=== PATIENT | male | born 1945 | race Caucasian/White ===

== ENCOUNTER 2020-05-29 07:04 | Outpatient (CLI) | payer MEDICARE, SELFPAY ==
[2020-05-29 07:46] LABS: Alanine Aminotransferase 26 U/L (4-50); Albumin Level 4.1 g/dL (3.5-5.1); Alkaline Phosphatase 63 U/L (38-126); Aspartate Amino Transferase 40 U/L (17-59); Bilirubin,Total 1.9 mg/dL (0.2-1.3); Blood Urea Nitrogen 15 mg/dL (9-20); Calcium 9.2 mg/dL (8.4-10.2); Carbon Dioxide 30 mmol/L (22-30); Chloride 102 mmol/L (98-107); Cholesterol 226 mg/dL (0-200); Estimated Glomerular Filt Rate 59; Glucose 95 mg/dL (75-110); HDL Direct 53 mg/dL; Sodium 137 mmol/L (137-145); Triglycerides 80 mg/dL (<150)
[2020-05-29 07:57] LABS: LDL Cholesterol Direct 150 mg/dL
[2020-05-29 08:14] LABS: Prostate Specific Antigen 18.2 ng/mL (< OR = 4.0)
[2020-05-29 10:53] LABS: Vitamin D 25 Hydroxy 60.5 ng/mL
== END 2020-05-29 07:05 | disposition home or self-care (01) ==
PROVIDERS: PCP Internal Medicine; Visit Provider Nurse Practitioner
DX: C61 Malignant neoplasm of prostate (principal); I10 Essential (primary) hypertension; E55.9 Vitamin D deficiency, unspecified; E78.5 Hyperlipidemia, unspecified
CPT/HCPCS: 36415; 80048; 80061; 80076; 82306; 84153

== ENCOUNTER 2020-12-25 07:03 | Outpatient (CLI) | payer MEDICARE, SELFPAY ==
[2020-12-25 08:50] LABS: Vitamin D 25 Hydroxy 63.4 ng/mL
[2020-12-25 09:29] LABS: Alanine Aminotransferase 33 U/L (4-50); Albumin Level 4.1 g/dL (3.5-5.1); Alkaline Phosphatase 63 U/L (38-126); Anion Gap 5 mmol/L (8-16); Aspartate Amino Transferase 46 U/L (17-59); Bilirubin,Total 1.5 mg/dL (0.2-1.3); Blood Urea Nitrogen 18 mg/dL (9-20); Calcium 9.6 mg/dL (8.4-10.2); Carbon Dioxide 35 mmol/L (22-30); Chloride 102 mmol/L (98-107); Cholesterol 245 mg/dL (0-200); Estimated Glomerular Filt Rate 59; Glucose 92 mg/dL (75-110); HDL Direct 54 mg/dL; Sodium 142 mmol/L (137-145); Triglycerides 93 mg/dL (<150)
[2020-12-25 09:40] LABS: LDL Cholesterol Direct 180 mg/dL
[2020-12-25 10:00] LABS: Prostate Specific Antigen 17.3 ng/mL (< OR = 4.0)
== END 2020-12-25 07:04 | disposition home or self-care (01) ==
PROVIDERS: PCP Internal Medicine; Visit Provider Internal Medicine
DX: E55.9 Vitamin D deficiency, unspecified (principal); E78.2 Mixed hyperlipidemia; I10 Essential (primary) hypertension; C61 Malignant neoplasm of prostate; E78.5 Hyperlipidemia, unspecified
CPT/HCPCS: 36415; 80053; 80061; 82306; 84153

== ENCOUNTER 2021-06-12 06:53 | Outpatient (CLI) | payer MEDICARE, SELFPAY ==
[2021-06-12 08:24] LABS: Alanine Aminotransferase 22 U/L (4-50); Albumin Level 3.9 g/dL (3.5-5.1); Alkaline Phosphatase 53 U/L (38-126); Anion Gap 7 mmol/L (8-16); Aspartate Amino Transferase 35 U/L (17-59); Bilirubin,Total 1.9 mg/dL (0.2-1.3); Blood Urea Nitrogen 17 mg/dL (9-20); Calcium 9.4 mg/dL (8.4-10.2); Carbon Dioxide 30 mmol/L (22-30); Chloride 101 mmol/L (98-107); Cholesterol 228 mg/dL (0-200); Estimated Glomerular Filt Rate > 60; Glucose 86 mg/dL (65-110); HDL Direct 52 mg/dL; Potassium 3.8 mmol/L (3.4-5.0); Sodium 138 mmol/L (137-145); Triglycerides 88 mg/dL (<150)
[2021-06-12 08:35] LABS: LDL Cholesterol Direct 133 mg/dL
[2021-06-12 08:50] LABS: Vitamin D 25 Hydroxy 80.8 ng/mL
== END 2021-06-12 06:54 | disposition home or self-care (01) ==
PROVIDERS: PCP Internal Medicine; Visit Provider Internal Medicine
DX: E78.2 Mixed hyperlipidemia (principal); C61 Malignant neoplasm of prostate; E55.9 Vitamin D deficiency, unspecified
CPT/HCPCS: 36415; 80053; 80061; 82306; 84153

== ENCOUNTER 2021-12-16 08:41 | Outpatient (CLI) | payer MEDICARE, SELFPAY ==
--- NOTE | ~2021-12-16 | XR_ITS ---
XR hip RT min 2V DATE: 12/16/2021 09:01 INDICATION: Right posterior hip pain TECHNIQUE: AP and lateral views of right hip COMPARISON: 06/29/2018 right hip FINDINGS: There is mild right hip osteoarthritis. No fracture, dislocation, avascular necrosis or bone destruction is evident. Alignment is preserved at the pubic symphysis and sacroiliac joints. IMPRESSION: Mild right hip osteoarthritis Reviewed, dictated and finalized at location A.
--- NOTE | ~2021-12-16 | XR_ITS ---
XR sacrum coccyx min 2V DATE: 12/16/2021 09:02 INDICATION: Right sacral coccygeal pain TECHNIQUE: AP, angled AP and lateral views COMPARISON: None FINDINGS: The pubic symphysis and sacroiliac joints are intact. No sacral or coccygeal fracture or anshul ne destruction is evident. There is prominent degenerative disc disease at L3-4, mild degenerative disc disease at L4-5. IMPRESSION: Multilevel degenerative disc disease of the lumbar spine No sacral or coccygeal fracture or bone destruction Reviewed, dictated and finalized at location A. TRICAL MECHANIC
--- NOTE | ~2021-12-16 | XR_ITS ---
XR lumbar spine 2-3V DATE: 12/16/2021 09:01 INDICATION: Back pain TECHNIQUE: AP, lateral, coned lateral lumbosacral views COMPARISON: None FINDINGS: There is diffuse idiopathic skeletal hyperostosis of the lower thoracic and upper lumbar sp ine. There is mild degenerative spurring of the lumbar spine. The included lower thoracic pedicles and ade mbar pedicles are intact. No fracture or bone destruction. The pedicles are intact. The sacroiliac joints are normal. IMPRESSION: Diffuse idiopathic skeletal hyperostosis of the thoracolumbar spine Mild lumbar degenerative disc disease Reviewed, dictated and finalized at location A. STICAL MATERIAL WORKER
--- NOTE | ~2021-12-16 | XR_ITS ---
XR femur RT min 2V DATE: 12/16/2021 09:01 INDICATION: Right thigh pain, posterior hip pain TECHNIQUE: AP and lateral views of right femur COMPARISON: None FINDINGS: There is mild right hip osteoarthritis. No fracture or dislocation, suspicious periosteal reaction or bone destruction of the right femur. There is enthesopathy of the patella at the quadriceps and patellar tendon insertions and some promin ent calcification along the patellar tendon. IMPRESSION: Patellar enthesopathy at quadriceps and patellar tendon insertion sites, prominent calcif ication at the upper patellar tendon Mild right hip osteoarthritis Reviewed, dictated and finalized at location A. CTOR [place] IMPRESSION: Patellar enthesopathy at quadriceps and patellar tendon insertion s ites, prominent calcification at the upper patellar tendon Mild right hip osteoarthritis
== END 2021-12-16 08:42 | disposition home or self-care (01) ==
PROVIDERS: PCP Internal Medicine; Visit Provider Internal Medicine
DX: M53.3 Sacrococcygeal disorders, not elsewhere classified (principal); M48.15 Ankylosing hyperostosis [Forestier], thoracolumbar region; M47.816 Spondylosis without myelopathy or radiculopathy, lumbar region; M17.11 Unilateral primary osteoarthritis, right knee; M76.51 Patellar tendinitis, right knee
CPT/HCPCS: 72100; 72220; 73502; 73552

== ENCOUNTER 2022-05-08 06:57 | Outpatient (CLI) | payer MEDICARE, SELFPAY ==
[2022-05-08 08:53] LABS: Vitamin D 25 Hydroxy 61.7 ng/mL
[2022-05-08 09:05] LABS: Alanine Aminotransferase 23 U/L (6-50); Alkaline Phosphatase 56 U/L (38-126); Anion Gap 5 mmol/L (8-16); Aspartate Amino Transferase 34 U/L (17-59); Bilirubin,Total 1.5 mg/dL (0.2-1.3); Blood Urea Nitrogen 17 mg/dL (9-20); Calcium 8.9 mg/dL (8.4-10.2); Carbon Dioxide 28 mmol/L (22-30); Chloride 105 mmol/L (98-107); Cholesterol 196 mg/dL (0-200); Estimated Glomerular Filt Rate > 60; Glucose 85 mg/dL (65-110); HDL Direct 57 mg/dL; Potassium 3.8 mmol/L (3.4-5.0); Sodium 138 mmol/L (137-145); Triglycerides 61 mg/dL (<150)
[2022-05-08 09:19] LABS: LDL Cholesterol Direct 113 mg/dL
[2022-05-10 19:56] LABS: PSA, Free 1.96 ng/mL; PSA, Total 19.2 ng/mL (<=4.0)
== END 2022-05-08 06:58 | disposition home or self-care (01) ==
LOC: ANHLAB 07:01
PROVIDERS: PCP Internal Medicine; Visit Provider Nurse Practitioner
DX: E78.2 Mixed hyperlipidemia (principal); E55.9 Vitamin D deficiency, unspecified; R97.20 Elevated prostate specific antigen [PSA]; Z13.21 Encounter for screening for nutritional disorder
CPT/HCPCS: 36415; 80053; 80061; 82306; 82607; 84153; 84154

== ENCOUNTER 2023-06-12 06:44 | Outpatient (CLI) | payer MEDICARE, SELFPAY ==
[2023-06-12 07:48] LABS: Alanine Aminotransferase 44 U/L (6-50); Albumin Level 4.3 g/dL (3.5-5.1); Alkaline Phosphatase 60 U/L (38-126); Anion Gap 6 mmol/L (8-16); Aspartate Amino Transferase 47 U/L (17-59); Bilirubin,Total 1.8 mg/dL (0.2-1.3); Blood Urea Nitrogen 18 mg/dL (9-20); Calcium 9.4 mg/dL (8.4-10.2); Carbon Dioxide 31 mmol/L (22-30); Chloride 101 mmol/L (98-107); Cholesterol 259 mg/dL (0-200); Estimated Glomerular Filt Rate 59; Glucose 99 mg/dL (65-110); HDL Direct 56 mg/dL; Potassium 4.7 mmol/L (3.4-5.0); Sodium 138 mmol/L (137-145); Triglycerides 126 mg/dL (<150)
[2023-06-12 07:55] LABS: LDL Cholesterol Direct 166 mg/dL
== END 2023-06-12 06:45 | disposition home or self-care (01) ==
LOC: ANHLAB 06:46
PROVIDERS: PCP Nurse Practitioner; Visit Provider Nurse Practitioner
DX: E55.9 Vitamin D deficiency, unspecified (principal); E78.2 Mixed hyperlipidemia
CPT/HCPCS: 36415; 80053; 80061; 82306

== ENCOUNTER 2023-12-13 16:23 | Emergency (ER) | payer MEDICARE, SELFPAY ==
[2023-12-13 16:26] VITALS: BP 223/114; PULSE 61; RESP 16; TEMP 35.7; O2SAT 100
--- NOTE | 2023-12-13 20:17 | PC.NURSE ---
Pt states he is going to go home, stating the wait is too long and he wants to get in his own bed. Pt educated about risks to leaving before seeing a provider, verbalized understanding. A&Ox4, ambulated out of ED with steady gait, in no obvious distress.
== END 2023-12-13 21:58 | disposition left against medical advice (07) ==
PROVIDERS: PCP Nurse Practitioner
DX: R42 Dizziness and giddiness (principal)
CPT/HCPCS: 99199

== ENCOUNTER 2024-03-18 09:16 | Outpatient (CLI) | payer MEDICARE, SELFPAY ==
--- NOTE | ~2024-03-18 | CT_ITS ---
CT of the Abdomen and Pelvis: Indication: Prostate cancer Technique: 2.5 mm axial scans were obtained through the abdomen and pelvis following intravenous adm inistration of 100 cc of Omnipaque 350. Dose reduction technique was used on this scan by utilizing a utomated exposure control and iterative reconstruction technique. The dose-length product (DLP) was 4 46.01 mGy-cm. Findings: Scans through the lung bases demonstrate 4 mm right middle lobe pulmonary nodule periphera lly (axial image 1). There is a 7 mm right lower lobe pulmonary nodule (axial image 5). There is a 3 mm right lower lobe pulmonary nodule (axial image 7). There is a 6 mm right lower lobe pulmonary nodu le (axial image 14).. Small probable hepatic cysts are present. The spleen, pancreas, gallbladder, adrenals and left kidney are within normal limits. 8 mm nonobstructing right renal stone present. There are atherosclerotic c alcifications of the aorta. No lymphadenopathy. No bowel obstruction or bowel wall thickening. There is no evidence to suggest acute appendicitis. Images through the pelvis were performed. Urinary bladder unremarkable. Prostate gland enlarged. No a scites. No osteoblastic lesion identified. Impression: Pulmonary nodules right lung base, as detailed above, largest measuring 7 mm. Metastatic disease is n ot excluded given history. If patient has had prior chest CTs elsewhere, then comparison with such ex ams would be useful to assess for chronicity of these nodules. No evidence for metastatic disease in the abdomen or pelvis otherwise. Reviewed, dictated and finalized at location M. Impression: Pulmonary nodules right lung base, as detailed above, largest measuring 7 mm. M etastatic disease is not excluded given history. If patient has had prior chest CTs elsewhere, then comparison with such exams would be useful to assess for c hronicity of these nodules. No evidence for metastatic disease in the abdomen or pelvis otherwise.
--- NOTE | ~2024-03-18 | NM_ITS ---
EXAMINATION: NM bone scan whole body DATE: 03/18/2024 13:24 INDICATION: Prostate cancer TECHNIQUE: 25.9 mCi Tc-99m HDP was administered intravenously. Delayed whole-body scintigrams were o btained. COMPARISON: CT abdomen and pelvis dated 03/18/2024 FINDINGS: Likely degenerative joint centered uptake at the bilateral knees, elbows, sternoclavicular and acromi oclavicular joints. Additional likely degenerative disc centered uptake at the lower cervical spine. Small focus of likely dental disease associated increased uptake at the right maxilla. Small focus of likely skin contamination at the right groin. No other no other suspicious atypical foci of abnormal bone uptake to suggest metastatic disease. IMPRESSION: 1. Scattered foci of likely degenerative joint and spine centered uptake. No lesion suspicious for me tastatic disease. Reviewed, dictated and finalized at location A. IMPRESSION: 1. Scattered foci of likely degenerative joint and spine centered uptake. No le celeste suspicious for metastatic disease.
[2024-03-18 09:46] LABS: Estimated Glomerular Filt Rate 59
== END 2024-03-18 09:17 | disposition home or self-care (01) ==
LOC: ANHIMG 09:19
PROVIDERS: PCP Nurse Practitioner; Visit Provider Urology
DX: C61 Malignant neoplasm of prostate (principal); R91.8 Other nonspecific abnormal finding of lung field
CPT/HCPCS: 74177; 78306; A9503; Q9967

== ENCOUNTER 2025-03-25 09:49 | Outpatient (CLI) | payer MEDICARE, SELFPAY ==
--- NOTE | ~2025-03-25 | CT_ITS ---
CT of the Abdomen and Pelvis: Indication: Prostate cancer Technique: 2.5 mm axial scans were obtained through the abdomen and pelvis following intravenous adm inistration of 100 cc of Omnipaque 350. Dose reduction technique was used on this scan by utilizing a utomated exposure control and iterative reconstruction technique. The dose-length product (DLP) was 4 52.39 mGy-cm. Findings: Scans through the lung bases are unremarkable. There is diffuse hepatic steatosis. Small hepatic cyst present in the inferior right hepatic lobe. Th e spleen, pancreas, gallbladder, adrenals and left kidney kidneys are within normal limits. 8 mm nono bstructing right renal stone present. There are atherosclerotic calcifications of the aorta. No lymp hadenopathy. No bowel obstruction or bowel wall thickening. There is no evidence to suggest acute appendicitis. Images through the pelvis were performed. Urinary bladder unremarkable. Prostate gland mildly enlarge d. Suggestion of area of relative hyperdensity in the left side measuring 2.5 x 2.7 cm. Impression: Suspected 2.5 x 2.7 cm hyperdense mass in the left side of the prostate gland, which could correlate with the history of prostate carcinoma. No evidence for metastatic disease. Diffuse hepatic steatosis. 8mm nonobstructing right renal stone. Reviewed, dictated and finalized at location M. Impression: Suspected 2.5 x 2.7 cm hyperdense mass in the left side of the prostate gland, which could correlate with the history of prostate carcinoma. No evidence for metastatic disease. Diffuse hepatic steatosis. 8mm nonobstructing right renal stone.
--- NOTE | ~2025-03-25 | NM_ITS ---
EXAMINATION: NM bone scan whole body DATE: 03/25/2025 14:01 INDICATION: Prostate cancer TECHNIQUE: 25 mCi Tc-99m HDP was administered intravenously. Delayed whole-body scintigrams were obt ained. COMPARISON: Prior bone scan dated 03/18/[address] abdomen and pelvis dated 04/04/2025 FINDINGS: Mild likely degenerative joint centered uptake at the lateral knees and acromioclavicular joints. Unc hanged mild uptake anteriorly at the lower cervical spine likely related to degenerative disc disease . No suspicious foci of abnormal bone uptake to suggest metastatic disease. IMPRESSION: 1. Mild likely degenerative joint and disc centered uptake as detailed above. No lesion suspicious fo r metastatic disease. Reviewed, dictated and finalized at location A. IMPRESSION: 1. Mild likely degenerative joint and disc centered uptake as detailed above. N o lesion suspicious for metastatic disease.
--- OUTSIDE RECORDS SUMMARY | 2025-03-25 09:57 | XMS_ITS | Referral Summary ---
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 Gender Identity Not on file Sexual Orientation Not on file Last Filed Vital Signs Vital Sign Reading Time Taken Comments Blood Pressure - - Pulse - - Temperature - - Respiratory Rate - - Oxygen Saturation - - Inhaled Oxygen Concentration - - Weight 79.4 kg (175 lb) 11/09/2022 10:54 AM TIGER MACHINE OPERATOR Height 175.3 cm (5' 9 ) 11/09/2022 10:54 AM TIGER MACHINE OPERATOR Body Mass Index 25.84 11/09/2022 10:54 AM TIGER MACHINE OPERATOR Plan of Treatment Not on file Insurance [facility] MEDICARE Care Teams Apartment Manager Relationship Specialty Start Date End Date Niraj Underwood DO PCP - General Internal Medicine 08/16/21
--- OUTSIDE RECORDS SUMMARY | 2025-03-25 09:57 | XMS_ITS | Clinical Summary ---
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 Gender Identity Not on file Sexual Orientation Not on file Obstetrics History Last Filed Vital Signs Vital Sign Reading Time Taken Comments Blood Pressure - - Pulse - - Temperature - - Respiratory Rate - - Oxygen Saturation - - Inhaled Oxygen Concentration - - Weight 79.4 kg (175 lb) 11/09/2022 10:54 AM PLATE PREPARER Height 175.3 cm (5' 9 ) 11/09/2022 10:54 AM PLATE PREPARER Body Mass Index 25.84 11/09/2022 10:54 AM PLATE PREPARER Plan of Treatment Health Maintenance Due Date Last Done Comments Depression Screening 1945 Fall Risk Assessment 1945 Hepatitis C Screening 1945 DTaP/Tdap/Td Vaccine (1 - Tdap) 1956 Hepatitis B Screening 1963 Pneumococcal vaccine 65+ (1 of 1 - PCV) 1995 Zoster Vaccine (1 of 2) 1995 Well Visit 65+ 2010 Covid-19 Vaccine ( - 2023- season) 2024 10/10/2021, 03/08/2021, 02/13/2021 Influenza Vaccine (#1) 2024 Insurance [employer] MEDICARE Care Teams Agricultural Economics Professor Relationship Specialty Start Date End Date Niraj Underwood DO PCP - General Internal Medicine 08/16/21
== END 2025-03-25 09:50 | disposition home or self-care (01) ==
LOC: ANHIMG 09:50
PROVIDERS: PCP Family Medicine; Visit Provider Urology
DX: C61 Malignant neoplasm of prostate (principal); K76.0 Fatty (change of) liver, not elsewhere classified; N20.0 Calculus of kidney
CPT/HCPCS: 74177; 78306; A9503; Q9967

== ENCOUNTER 2025-04-04 09:04 | Outpatient (CLI) | payer MEDICARE, SELFPAY ==
--- OUTSIDE RECORDS SUMMARY | 2025-04-04 09:25 | XMS_ITS | Clinical Summary ---
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 Gender Identity Not on file Sexual Orientation Not on file Obstetrics History Last Filed Vital Signs Vital Sign Reading Time Taken Comments Blood Pressure - - Pulse - - Temperature - - Respiratory Rate - - Oxygen Saturation - - Inhaled Oxygen Concentration - - Weight 79.4 kg (175 lb) 11/09/2022 10:54 AM MANAGER HEAVY EQUIPMENT Height 175.3 cm (5' 9 ) 11/09/2022 10:54 AM MANAGER HEAVY EQUIPMENT Body Mass Index 25.84 11/09/2022 10:54 AM MANAGER HEAVY EQUIPMENT Plan of Treatment Health Maintenance Due Date [...] (#1) 2024 Insurance [employer] MEDICARE Care Teams Car Construction Superintendent Relationship Specialty Start Date End Date Niraj Underwood DO PCP - General Internal Medicine 08/16/21
--- OUTSIDE RECORDS SUMMARY | 2025-04-04 09:25 | XMS_ITS | Referral Summary ---
Author Organization 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 Gender Identity Not on file Sexual Orientation Not on file Last Filed Vital Signs Vital Sign Reading Time Taken Comments Blood Pressure - - Pulse - - Temperature - - Respiratory Rate - - Oxygen Saturation - - Inhaled Oxygen Concentration - - Weight 79.4 kg (175 lb) 11/09/2022 10:54 AM CATTERY OPERATOR Height 175.3 cm (5' 9 ) 11/09/2022 10:54 AM CATTERY OPERATOR Body Mass Index 25.84 11/09/2022 10:54 AM CATTERY OPERATOR Plan of Treatment Not on file Insurance [facility] MEDICARE Care Teams Briquette Operator Relationship Specialty Start Date End Date Niraj Underwood DO PCP - General Internal Medicine 08/16/21
[2025-04-04 09:33] LABS: Alanine Aminotransferase 23 U/L (6-50); Albumin Level 4.1 g/dL (3.5-5.1); Alkaline Phosphatase 50 U/L (38-126); Anion Gap 7 mmol/L (4-12); Aspartate Amino Transferase 33 U/L (17-59); Bilirubin,Total 1.8 mg/dL (0.2-1.3); Blood Urea Nitrogen 13 mg/dL (9-20); Carbon Dioxide 27 mmol/L (22-30); Chloride 105 mmol/L (98-107); Cholesterol 252 mg/dL (0-200); Estimated Glomerular Filt Rate > 60; Glucose 96 mg/dL (65-110); HDL Direct 53 mg/dL; Potassium 4.3 mmol/L (3.4-5.0); Sodium 139 mmol/L (137-145); Triglycerides 108 mg/dL (<150)
[2025-04-04 09:34] LABS: Hematocrit 49.7 % (42.0-52.0); Mean Corpuscular HGB Conc 32.2 g/dl (32-36); Mean Corpuscular Hemoglobin 30.3 pg (26-34); Mean Corpuscular Volume 94.1 fl (80-100); Mean Platelet Volume 9.8 fl (7.4-10.4); Platelet Count Result 261 k/mm3 (150-375); Red Blood Count 5.28 M/mm3 (4.6-6.20); Red Cell Distribution Width 13.5 % (11.5-14.5); White Blood Count 6.5 K/mm3 (4.5-10.0)
[2025-04-04 09:45] LABS: LDL Cholesterol Direct 160 mg/dL
== END 2025-04-04 09:05 | disposition home or self-care (01) ==
PROVIDERS: PCP Family Medicine; Visit Provider Nurse Practitioner Family
DX: E78.5 Hyperlipidemia, unspecified (principal); I10 Essential (primary) hypertension; Z79.899 Other long term (current) drug therapy
CPT/HCPCS: 36415; 80053; 80061; 84443; 85027

== ENCOUNTER 2025-05-01 09:49 | Outpatient (CLI) | payer MEDICARE, SELFPAY ==
--- NOTE | ~2025-05-01 | MR_ITS ---
MRI of the brain Clinical History: Hypertension Technique: Axial and sagittal T1-weighted images were acquired. These were followed by axial T2-weigh rob, diffusion weighted, gradient, and FLAIR images. Thin cut coronal and axial T1-weighted and T2-we ighted images were performed through the internal auditory canals. Findings: No acute infarct, intracranial hemorrhage or mass lesion identified. There is moderate research nurse practitioner juanito microvascular ischemic change in the periventricular white matter bilaterally. Ventricles and subarachnoid spaces are mildly dilated. Orbits are unremarkable. Paranasal sinuses and mastoid air cells are clear. Major intracranial flow voids are intact. Sagittal midline structures are intact. No abnormal mass lesion identified at the CP angle regions or internal auditory canals. IMPRESSION: No abnormal mass lesion, acute infarct, or intracranial hemorrhage seen. Consider postcontrast imagin g to better evaluate for small mass at the internal auditory canals, as indicated. Moderate chronic microvascular ischemic change. Reviewed, dictated and finalized at [facility]. IMPRESSION: No abnormal mass lesion, acute infarct, or intracranial hemorrhage seen. Consid er postcontrast imaging to better evaluate for small mass at the internal audit ory canals, as indicated. Moderate chronic microvascular ischemic change.
--- OUTSIDE RECORDS SUMMARY | 2025-05-01 09:51 | XMS_ITS | Clinical Summary ---
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 Gender Identity Not on file Sexual Orientation Not on file Obstetrics History Last Filed Vital Signs Vital Sign Reading Time Taken Comments Blood Pressure - - Pulse - - Temperature - - Respiratory Rate - - Oxygen Saturation - - Inhaled Oxygen Concentration - - Weight 79.4 kg (175 lb) 11/09/2022 10:54 AM DRAWING CHECKER Height 175.3 cm (5' 9) 11/09/2022 10:54 AM DRAWING CHECKER Body Mass Index 25.84 11/09/2022 10:54 AM DRAWING CHECKER Plan of Treatment Health Maintenance Due Date Last Done Comments Depression Screening 1945 Fall Risk Assessment 1945 DTaP/Tdap/Td Vaccine (1 - Tdap) 1956 Hepatitis B Screening 1963 Pneumococcal vaccine 65+ (1 of 1 - PCV) 1995 Zoster Vaccine (1 of 2) 1995 Well Visit 65+ 2010 Covid-19 Vaccine ( season) 2024 10/10/2021, 03/08/2021, 02/13/2021 Influenza Vaccine (Season Ended) 2025 Insurance [facility] MEDICARE Care Teams Cut And Print Machine Operator Relationship Specialty Start Date End Date Niraj Underwood DO PCP - General Internal Medicine 08/16/21
--- OUTSIDE RECORDS SUMMARY | 2025-05-01 09:51 | XMS_ITS | Referral Summary ---
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 Gender Identity Not on file Sexual Orientation Not on file Last Filed Vital Signs Vital Sign Reading Time Taken Comments Blood Pressure - - Pulse - - Temperature - - Respiratory Rate - - Oxygen Saturation - - Inhaled Oxygen Concentration - - Weight 79.4 kg (175 lb) 11/09/2022 10:54 AM RESEARCH TEST ENGINE EVALUATOR Height 175.3 cm (5' 9) 11/09/2022 10:54 AM RESEARCH TEST ENGINE EVALUATOR Body Mass Index 25.84 11/09/2022 10:54 AM RESEARCH TEST ENGINE EVALUATOR Plan of Treatment Not on file Insurance [facility] MEDICARE Care Teams Photograph Mounter Relationship Specialty Start Date End Date Niraj Underwood DO PCP - General Internal Medicine 08/16/21
== END 2025-05-01 09:50 | disposition home or self-care (01) ==
PROVIDERS: PCP Family Medicine; Visit Provider Family Medicine
DX: R27.0 Ataxia, unspecified (principal); I10 Essential (primary) hypertension
CPT/HCPCS: 70551